=== PATIENT | male | born 1970 | race Caucasian/White ===

== ENCOUNTER 2021-10-02 02:39 | Emergency (ER) | payer BC ==
[~2021-10-02] VITALS: Ht 162.6 cm; Wt 109.1 kg
[~2021-10-02 02:39] MED LIST: MOBIC15 MG PO
[2021-10-02 03:29] VITALS: TEMP 98.5
[2021-10-02 04:25] LABS: BASO # 0.1 K/mm3 (0.0-0.2); BASO % 0.8 % (0.0-2.0); EOS # 0.3 K/mm3 (0.0-0.7); EOS % 3.5 % (0.0-4.0); GRAN # 3.3 K/mm3 (1.4-6.5); GRAN % 43.6 % (42.2-75.2); HEMATOCRIT 47.3 % (42.0-52.0); HEMOGLOBIN 17.1 g/dl (13.5-18.0); LYMPH # 3.2 K/mm3 (1.2-3.4); LYMPH % 42.2 % (20.0-51.0); MEAN CELL VOLUME 88 fl (80.0-100.0); MEAN CORPUSCULAR HEMOGLOBIN 32 pg (27-31); MEAN CORPUSCULAR HGB CONC 36 g/dl (33.0-37.0); MEAN PLATELET VOLUME 9.6 fl (7.4-10.4); MONO # 0.7 K/mm3 (0.1-0.6); MONO % 9.8 % (1.7-9.3); PLATELET COUNT 280 K/mm3 (130-400); RED BLOOD COUNT 5.35 M/mm3 (4.20-5.60); REDCELL DISTRIBUTION WIDTH-CV 12.6 % (11.5-14.5)
[2021-10-02 04:29] LABS: ALBUMIN 3.8 gm/dL (3.5-5.0); CALCIUM 9.2 mg/dL (8.4-10.2); CREATININE, serum 0.83 mg/dL (0.72-1.25); POTASSIUM 3.4 mmol/L (3.5-4.5); TOTAL PROTEIN 7.1 gm/dL (6.2-8.1)
[2021-10-02] MEDS ORDERED: BACTRIM DS 8001 TAB PO (05:37)
[2021-10-02] MEDS ORDERED: NORCO 325 MG-51 TAB PO (05:37)
[2021-10-02 06:03] VITALS: BP 189/131; PULSE 110
== END 2021-10-02 06:03 | disposition home or self-care (01) ==
LOC: COL.ER 02:39
PROVIDERS: Personal Emergency Response Attendant
DX: K43.9 Ventral hernia without obstruction or gangrene (principal); I10 Essential (primary) hypertension; Z98.890 Other specified postprocedural states
CPT/HCPCS: J2270; J2405; J7030; Q9967

== ENCOUNTER 2021-10-06 13:37 | Day surgery (SDC) | payer BC ==
[~2021-10-06] VITALS: Ht 160 cm; Wt 106.8 kg
[~2021-10-06 13:37] MED LIST changes: +BACTRIM DS 8001 TAB PO; +NORCO 325 MG-51 TAB PO
[2021-10-06 14:55] LABS: BASO % 0.3 % (0.0-2.0); EOS # 0.3 K/mm3 (0.0-0.7); EOS % 5.2 % (0.0-4.0); GRAN # 4.3 K/mm3 (1.4-6.5); GRAN % 68.6 % (42.2-75.2); HEMATOCRIT 46.6 % (42.0-52.0); HEMOGLOBIN 16.4 g/dl (13.5-18.0); LYMPH # 1.1 K/mm3 (1.2-3.4); LYMPH % 17.7 % (20.0-51.0); MEAN CELL VOLUME 91 fl (80.0-100.0); MEAN CORPUSCULAR HEMOGLOBIN 32 pg (27-31); MEAN CORPUSCULAR HGB CONC 35 g/dl (33.0-37.0); MEAN PLATELET VOLUME 9.5 fl (7.4-10.4); MONO # 0.5 K/mm3 (0.1-0.6); MONO % 7.9 % (1.7-9.3); PLATELET COUNT 209 K/mm3 (130-400); RED BLOOD COUNT 5.14 M/mm3 (4.20-5.60); REDCELL DISTRIBUTION WIDTH-CV 12.8 % (11.5-14.5)
[2021-10-06 15:00] LABS: INR 1.1 (0.8-3.0); PROTHROMBIN TIME 11.9 SECONDS (9.7-12.8)
--- NOTE | 2021-10-06 15:12 | NUR ---
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 States that he will go talk with the surgeon.
[2021-10-06 15:15] LABS: ALBUMIN 4.2 gm/dL (3.5-5.0); BILIRUBIN,TOTAL 1.3 mg/dL (0.2-1.2); CALCIUM 9.4 mg/dL (8.4-10.2); CREATININE, serum 1.01 mg/dL (0.72-1.25); POTASSIUM 3.4 mmol/L (3.5-4.5); TOTAL PROTEIN 7.8 gm/dL (6.2-8.1)
[2021-10-06 15:22] VITALS: BP 162/124; PULSE 116; TEMP 97.8
--- NOTE | 2021-10-06 15:38 | NUR ---
Order received for 10mg IV Labetalol and add on test for blood alcohol. BP 176/118, 108, and room air sats 93% prior to medication.
--- NOTE | 2021-10-06 16:08 | NUR ---
174/116, 86, 97% on room air. 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
--- NOTE | 2021-10-06 16:26 | NUR ---
Rapid Covid swab done. Resting on cart. Awaits Dr. Wilder to come and talk with him.
--- NOTE | 2021-10-06 17:15 | NUR ---
Dr. Wilder here and is talking with the patient. Will cancel surgery for today and Dr. Wilder is instructing the patient he will need to be cleared by primary care physician prior to be rescheduled and resume blood pressure medications.
--- NOTE | 2021-10-06 17:38 | NUR ---
Patient dismissed to home driven by son and taken to the emergency room per wheelchair and driven home per private vehicle.
== END 2021-10-06 17:37 | disposition home or self-care (01) ==
LOC: SDCO 13:37
PROVIDERS: Surgery
DX: K43.9 Ventral hernia without obstruction or gangrene (principal); I10 Essential (primary) hypertension; Z91.19 Patient's noncompliance with other medical treatment and regimen; Z20.822 Contact with and (suspected) exposure to COVID-19; Z53.8 Procedure and treatment not carried out for other reasons
CPT/HCPCS: J7120

== ENCOUNTER 2021-10-19 10:51 | Day surgery (SDC) | payer BC ==
[~2021-10-19] VITALS: Ht 160 cm; Wt 107.0 kg
[2021-10-19] MEDS ORDERED: TOPROL XL 50MG50 MG PO (11:24)
[2021-10-19] MEDS ORDERED: COZAAR100 MG PO (11:24)
[2021-10-19 12:06] VITALS: BP 156/102; PULSE 87; TEMP 97.6
--- NOTE | 2021-10-19 12:50 | NUR ---
1225 BP 156/103 1230 ADMINISTERED MEDICATION TO TREAT HYPERTENSION PER ANESTHESIA ORDERS. 1250 BP 152/96. DR. MARTIN IN , NO NEW ORDERS.
[2021-10-19] MEDS ORDERED: NORCO 325 MG-51 TAB PO (14:58)
[2021-10-19] MEDS ORDERED: MOTRIN 600600 MG/TAB PO (14:59)
[2021-10-19 15:30] VITALS: BP 123/80; PULSE 71; TEMP 97.3
[2021-10-19 15:45] VITALS: BP 138/94; PULSE 73
[2021-10-19 16:00] VITALS: BP 121/79; PULSE 70
--- NOTE | 2021-10-19 16:30 | NUR ---
1530 PT RETURNED VIA CART TO BAY 7. ALERT AND ORIENTED. POSTOP VITALS STARTED. WATER AND MUFFING PROVIDED. OPERATIVE SITE COVERED BY BINDER, OPERATIVE AREA IS CLEAN AND DRY. 1545 PT TOLERATING FOOD AND DRINK WELL. VITALS STABLE 1600 PT UP TO BATHROOM, ABLE TO VOID WITHOUT DIFFICULTY. PT REPORTS PAIN OF 5/10 AND REQUEST PAIN MEDICATION. 1635 TRANSFERED PT VIA WHEEL CHAIR TO PERSONAL VEHICLE TO BE DRIVEN HOME BY DAUGHTER.
== END 2021-10-19 16:30 | disposition home or self-care (01) ==
LOC: SDCO 10:51
DX: K43.2 Incisional hernia without obstruction or gangrene (principal); I10 Essential (primary) hypertension; M19.90 Unspecified osteoarthritis, unspecified site; E66.01 Morbid (severe) obesity due to excess calories; Z68.41 Body mass index [BMI] 40.0-44.9, adult; Z79.899 Other long term (current) drug therapy; Z79.2 Long term (current) use of antibiotics; Z90.49 Acquired absence of other specified parts of digestive tract
CPT/HCPCS: C1781; J1170; J1885; J2405; J2704; J3010; J7120

== ENCOUNTER → 2024-03-24 | Outpatient (CLI) | payer OTHER ==
[~2024-03-24] MED LIST changes: +COZAAR100 MG PO; +MOTRIN 600600 MG/TAB PO; +TOPROL XL 50MG50 MG PO
== END ==
LOC: COL.RAD 10:30
DX: M51.17 Intervertebral disc disorders with radiculopathy, lumbosacral region (principal); M48.07 Spinal stenosis, lumbosacral region; M43.17 Spondylolisthesis, lumbosacral region

== ENCOUNTER → 2024-07-01 | Outpatient (CLI) | payer OTHER | LOC: MHCPAIN 12:38 | DX: M43.17 Spondylolisthesis, lumbosacral region (principal); M48.061 Spinal stenosis, lumbar region without neurogenic claudication; M47.816 Spondylosis without myelopathy or radiculopathy, lumbar region; I10 Essential (primary) hypertension; E78.5 Hyperlipidemia, unspecified | CPT/HCPCS: G0463 ==